=== PATIENT | female | born 1940 | race Caucasian/White ===

== ENCOUNTER → 2018-01-16 | Outpatient (CLI) | payer MEDICARE ==
[~2018-01-16] MED LIST: AMLO10TA2 PO; ASPI-1197 PO; B12/1TAB2 PO; BENZ-51 PO; CALC-1198 PO; CHOL200012 PO; CHRO1000 PO; DOXY100T2 PO; ESTR1TAB12 PO; FOLI0.8T PO; IPRA3AMP24 IH; LEVO75TA10 PO; MAGN400T40 PO; METF500T6 PO; MVIT PO; OMEG-125 PO; OMEP10CA41 PO; POTA99TA21 PO; PRAV20TA4 PO; SOLI10TA PO; VIT1CAPS46 PO
== END | disposition home or self-care (01) ==
LOC: RAH 10:29
PROVIDERS: ATTEND Physician Assistant Medical
DX: Z12.31 Encounter for screening mammogram for malignant neoplasm of breast (principal)
CPT/HCPCS: 77067

== ENCOUNTER → 2019-01-17 | Outpatient (CLI) | payer MEDICARE ==
[~2019-01-17] MED LIST changes: -AMLO10TA2 PO; +AMLO10TA7 PO; -DOXY100T2 PO; +LEVO500T2 PO; +METF-444 PO; -METF500T6 PO; +PRAM0.258 PO
== END | disposition home or self-care (01) ==
LOC: RAH 09:21
PROVIDERS: ATTEND Physician Assistant Medical
DX: Z12.31 Encounter for screening mammogram for malignant neoplasm of breast (principal)
CPT/HCPCS: 77067

== ENCOUNTER 2019-12-16 11:29 | Inpatient (IN) | payer MEDICARE, OTHER ==
[~2019-12-16] VITALS: Ht 162.6 cm; Wt 67.2 kg
[~2019-12-16 11:29] MED LIST changes: -OMEP10CA41 PO; +OMEP10CA5 PO
[2019-12-16 12:22] LABS: EOSINOPHILS % (AUTO) 2.4 % (0.0-8.0); HEMATOCRIT 24.1 % (36-48); LYMPHOCYTES % (AUTO) 18.3 % (21.0-51.0); MEAN CORPUSCULAR HEMOGLOBIN 15.8 pg (27.0-33.0); MEAN CORPUSCULAR HGB CONC 26.6 g/dL (32.0-36.0); MEAN CORPUSCULAR VOLUME 59.7 fL (79-99); MONOCYTES % (AUTO) 7.6 % (3.0-13.0); NEUTROPHILS % (AUTO) 70.4 % (40.0-77.0); PLATELET COUNT (AUTO) 290 K/uL (130-400); RED BLOOD CELL COUNT(AUTO) 4.04 MIL/uL (4.00-5.50); RED CELL DISTRIBUTION WIDTH 20.8 % (11.0-15.5); WHITE BLOOD COUNT (AUTO) 8.6 K/uL (4.8-10.8)
[2019-12-16 12:28] LABS: CREATININE 0.8 mg/dL (0.5-1.5); POTASSIUM 4.1 mmol/L (3.5-5.1)
[2019-12-16 12:36] LABS: ALBUMIN 3.6 g/dL (3.5-5.0); BILIRUBIN,DIRECT 0.1 mg/dL (0.0-0.3); BILIRUBIN,TOTAL 0.4 mg/dL (0.2-1.0)
[2019-12-16 12:37] LABS: INR 0.95 (0.85-1.15); PARTIAL THROMBOPLASTIN TIME 27.1 SEC (26.3-35.5); PROTHROMBIN TIME 10.3 SEC (9.6-11.6)
[2019-12-16] MEDS: SODIUM CHLORIDE 0.9% 1000ML 1,000 ML IV SCH (15:51)
[2019-12-16] MEDS ORDERED: HYDRALAZINE HCL 20 MG/ML VIAL IV PRN (16:00)
[2019-12-16] MEDS ORDERED: ACETAMINOPHEN 325 MG TAB PO PRN (16:00)
[2019-12-16 17:46] VITALS: BP 156/98
[2019-12-16] MEDS ORDERED: ASPI-555 PO (18:17)
[2019-12-16] MEDS ORDERED: [UNRECOGNIZED DRUG - OTHER] (18:17)
[2019-12-16] MEDS ORDERED: ESTR0.452 PO (18:17)
[2019-12-16] MEDS ORDERED: METF500S7 PO (18:17)
[2019-12-16] MEDS ORDERED: ALBU90AE2 IH (18:17)
[2019-12-16] MEDS ORDERED: MIRA25TA PO (18:17)
[2019-12-16] MEDS ORDERED: PYRI100T10 PO (18:17)
[2019-12-16] MEDS ORDERED: LEVO75TA10 PO (18:17)
[2019-12-16] MEDS ORDERED: OMEP40CA13 PO (18:17)
[2019-12-16] MEDS ORDERED: PRAM1TAB7 PO (18:17)
[2019-12-16] MEDS ORDERED: ALEN70TA10 PO (18:17)
[2019-12-16] MEDS ORDERED: PRAV20TA4 PO (18:17)
[2019-12-16] MEDS ORDERED: AMLO10TA7 PO (18:17)
[2019-12-16 19:00] VITALS: BP 138/63
[2019-12-16 19:28] LABS: RETICULOCYTE % (AUTO) 2.24 % (0.42-2.23)
[2019-12-16 20:38] LABS: % IRON SATURATION 2.9 % (22-44)
[2019-12-16 20:55] LABS: ALBUMIN 3.4 g/dL (3.5-5.0); BILIRUBIN,TOTAL 1.3 mg/dL (0.2-1.0); CREATININE 0.9 mg/dL (0.5-1.5); POTASSIUM 4.1 mmol/L (3.5-5.1); TOTAL PROTEIN, SERUM 6.8 g/dL (6.0-8.3)
[2019-12-16] MEDS: ACETAMINOPHEN 325 MG TAB PO PRN (22:04)
[2019-12-16 22:20] LABS: HEMATOCRIT 27.5 % (36-48); MEAN CORPUSCULAR HEMOGLOBIN 17.3 pg (27.0-33.0); MEAN CORPUSCULAR HGB CONC 27.3 g/dL (32.0-36.0); MEAN CORPUSCULAR VOLUME 63.5 fL (79-99); PLATELET COUNT (AUTO) 287 K/uL (130-400); RED BLOOD CELL COUNT(AUTO) 4.33 MIL/uL (4.00-5.50); WHITE BLOOD COUNT (AUTO) 9.4 K/uL (4.8-10.8)
[2019-12-16 23:00] VITALS: BP 142/66
[2019-12-17] MEDS: SODIUM CHLORIDE 0.9% 1000ML 1,000 ML IV SCH ×3 (01:51→20:30)
[2019-12-17 03:00] VITALS: BP 135/61
[2019-12-17 04:46] LABS: APPEARANCE,URINE Clear (CLEAR); BILIRUBIN,URINE Negative (NEGATIVE); COLOR,URINE Yellow (YELLOW); GLUCOSE, URINE (UA) Negative (NEGATIVE); KETONES,URINE Negative (NEGATIVE); LEUKOCYTE ESTERASE ,URINE Trace (NEGATIVE); NITRATE,URINE Negative (NEGATIVE); OCCULT BLOOD,URINE Negative (NEGATIVE); PH,URINE 6.5 (5.0-8.0); PROTEIN,URINE Negative (NEGATIVE)
[2019-12-17 05:01] LABS: BACTERIA,URINE Rare /HPF (None Seen); RBC,URINE 0-1 /HPF (0-1); SQUAMOUS EPITHELIAL CELL,UR Few /HPF (0-2)
[2019-12-17 05:27] LABS: BASOPHILS % (AUTO) 1.1 % (0.0-5.0); EOSINOPHILS % (AUTO) 8.5 % (0.0-8.0); HEMATOCRIT 28.9 % (36-48); LYMPHOCYTES % (AUTO) 20.1 % (21.0-51.0); MEAN CORPUSCULAR HEMOGLOBIN 17.2 pg (27.0-33.0); MEAN CORPUSCULAR HGB CONC 27.3 g/dL (32.0-36.0); MEAN CORPUSCULAR VOLUME 62.8 fL (79-99); MONOCYTES % (AUTO) 8.5 % (3.0-13.0); NEUTROPHILS % (AUTO) 61.2 % (40.0-77.0); PLATELET COUNT (AUTO) 267 K/uL (130-400); RED CELL DISTRIBUTION WIDTH 22.6 % (11.0-15.5); WHITE BLOOD COUNT (AUTO) 7.9 K/uL (4.8-10.8)
--- NOTE | 2019-12-17 06:39 | NUR ---
PAGED PATIENT HOME MEDICATION LIST HAS BEEN RECONCILED AND PENDING MD REVIEW. PATIENT WANTING TO KNOW IF SHE CAN TAKE HER PRESCRIBED MEDICATIONS, IS "WORRIED" ABOUT MISSING HER THYROID MEDICATION. WAITING FOR CALL BACK.
[2019-12-17 08:49] VITALS: BP 138/72
[2019-12-17] MEDS ORDERED: FAMOTIDINE/PF 20 MG/2 ML VIAL IV SCH (09:00)
[2019-12-17 10:59] VITALS: BP 142/57
--- NOTE | 2019-12-17 12:47 | NUR ---
DCP CM met with pt discussed dc plans. Pt is independent prior to admission, lives at home with spouse. Pt has a nebulizer, walker, O2. Denies any other equipments/services. Feels safe to go back home, still drives, spouse able to assist with transportation and needs as necessary. DC plan to home once stable. CM to cont to follow up. Addendum: 12/17/19 at 1249 by ALDO PINTO LVN CM Amended: Links added.
[2019-12-17 15:42] VITALS: BP 141/65
[2019-12-17] MEDS ORDERED: ALBUTEROL SULFATE 0.083% 2.5 MG/3 ML INH IH SCH (18:00)
[2019-12-17] MEDS ORDERED: ALBUTEROL SULFATE 0.083% 2.5 MG/3 ML INH IH ONE (18:13)
[2019-12-17 19:45] VITALS: BP 147/56
[2019-12-17] MEDS: GUAIFENESIN/DEXTROMETHORPHAN 1 EACH TAB.SR.12H PO SCH (20:14)
[2019-12-17] MEDS: ATORVASTATIN CALCIUM 10 MG TABLET PO SCH (20:15)
[2019-12-17] MEDS: ACETAMINOPHEN 325 MG TAB PO PRN (21:46)
[2019-12-17 23:21] VITALS: BP 154/62
[2019-12-18] VITALS (18 sets, daily range): BP systolic 111–172; BP diastolic 48–91
--- NOTE | 2019-12-18 | NUR ---
Patient kept NPO post midniht for EGD in am
[2019-12-18] MEDS: LEVOTHYROXINE 75 MCG TABLET PO SCH (06:30)
[2019-12-18] MEDS: IPRATROPIUM/ALBUTEROL SULFATE 3 ML SOLUTION IH SCH ×2 (06:58→18:21)
--- NOTE | 2019-12-18 07:44 | NUR ---
Patient remained NPO, for EGD today already scheduled per am shift nurse yesterday.Bedside report given.
[2019-12-18] MEDS: METFORMIN HCL 500 MG TAB.SR.24H PO SCH (08:00)
[2019-12-18] MEDS: **HM**(Mirabegron (Myrbetriq) 25 MG PO SCH (09:00)
[2019-12-18] MEDS ORDERED: MORPHINE SULFATE 2 MG/ML 1ML SYG IM PRN (11:15)
[2019-12-18] MEDS ORDERED: LIDOCAINE HCL 1% 20 ML VIAL ONE (12:29)
[2019-12-18] MEDS ORDERED: PROPOFOL 10 MG/ML 20ML VIAL IV ONE (12:29)
[2019-12-18] MEDS: GUAIFENESIN/DEXTROMETHORPHAN 1 EACH TAB.SR.12H PO SCH ×2 (15:17→20:32)
[2019-12-18] MEDS: AMLODIPINE BESYLATE 5 MG TAB PO SCH (15:18)
[2019-12-18] MEDS: ESTROGENS,CONJUGATED 0.625 MG TAB PO SCH (15:21)
[2019-12-18] MEDS: PYRIDOXINE HCL 50 MG TABLET PO SCH (15:21)
[2019-12-18] MEDS: PRAMIPEXOLE DI-HCL 0.25 MG TABLET PO SCH (15:22)
[2019-12-18] MEDS: ACETAMINOPHEN 325 MG TAB PO PRN ×2 (15:44→20:32)
[2019-12-18] MEDS: ATORVASTATIN CALCIUM 10 MG TABLET PO SCH (20:32)
[2019-12-18] MEDS: ONDANSETRON HCL 4 MG/2 ML VIAL IV PRN (20:32)
[2019-12-18] MEDS: SODIUM CHLORIDE 0.9% 1000ML 1,000 ML IV SCH (20:33)
[2019-12-19] VITALS (7 sets, daily range): BP systolic 115–143; BP diastolic 53–75
[2019-12-19] MEDS: ACETAMINOPHEN 325 MG TAB PO PRN ×2 (02:58→08:35)
[2019-12-19 05:15] LABS: BASOPHILS % (AUTO) 0.8 % (0.0-5.0); HEMATOCRIT 29.9 % (36-48); LYMPHOCYTES % (AUTO) 12.5 % (21.0-51.0); MEAN CORPUSCULAR HEMOGLOBIN 17.6 pg (27.0-33.0); MEAN CORPUSCULAR HGB CONC 27.4 g/dL (32.0-36.0); MEAN CORPUSCULAR VOLUME 64.3 fL (79-99); MONOCYTES % (AUTO) 6.7 % (3.0-13.0); NEUTROPHILS % (AUTO) 78.5 % (40.0-77.0); PLATELET COUNT (AUTO) 272 K/uL (130-400); RED BLOOD CELL COUNT(AUTO) 4.65 MIL/uL (4.00-5.50); RED CELL DISTRIBUTION WIDTH 24.2 % (11.0-15.5)
[2019-12-19 06:05] LABS: ALBUMIN 3.3 g/dL (3.5-5.0); BILIRUBIN,TOTAL 0.4 mg/dL (0.2-1.0); CREATININE 0.7 mg/dL (0.5-1.5); POTASSIUM 5.1 mmol/L (3.5-5.1); TOTAL PROTEIN, SERUM 6.6 g/dL (6.0-8.3)
[2019-12-19] MEDS: LEVOTHYROXINE 75 MCG TABLET PO SCH (06:09)
[2019-12-19] MEDS: IPRATROPIUM/ALBUTEROL SULFATE 3 ML SOLUTION IH SCH ×4 (06:50→21:53)
[2019-12-19] MEDS: PANTOPRAZOLE SODIUM 40 MG TABLET.DR PO SCH ×2 (08:33→08:36)
[2019-12-19] MEDS: METFORMIN HCL 500 MG TAB.SR.24H PO SCH (08:33)
[2019-12-19] MEDS: ESTROGENS,CONJUGATED 0.625 MG TAB PO SCH (08:33)
[2019-12-19] MEDS: GUAIFENESIN/DEXTROMETHORPHAN 1 EACH TAB.SR.12H PO SCH ×2 (08:33→19:55)
[2019-12-19] MEDS: AMLODIPINE BESYLATE 5 MG TAB PO SCH (08:34)
[2019-12-19] MEDS: PRAMIPEXOLE DI-HCL 0.25 MG TABLET PO SCH (08:34)
[2019-12-19] MEDS: PYRIDOXINE HCL 50 MG TABLET PO SCH (08:34)
[2019-12-19] MEDS: **HM**(Mirabegron (Myrbetriq) 25 MG PO SCH (08:36)
[2019-12-19] MEDS: SODIUM CHLORIDE 0.9% 1000ML 1,000 ML IV SCH (08:36)
[2019-12-19] MEDS ORDERED: BENZONATATE 100 MG CAPSULE PO PRN (13:30)
[2019-12-19] MEDS: METHYLPREDNISOLONE SOD SUCC 40MG/ML 1ML IVP SCH ×3 (14:43→23:56)
[2019-12-19] MEDS: BUTALB/ACETAMINOPHEN/CAFFEINE 1 EACH TABLET PO PRN ×2 (19:09→23:33)
[2019-12-19] MEDS: ATORVASTATIN CALCIUM 10 MG TABLET PO SCH (19:55)
[2019-12-20] MEDS: IPRATROPIUM/ALBUTEROL SULFATE 3 ML SOLUTION IH SCH ×6 (01:18→22:02)
[2019-12-20 04:36] VITALS: BP 118/57
[2019-12-20 05:18] LABS: BASOPHILS % (AUTO) 0.1 % (0.0-5.0); HEMATOCRIT 29.1 % (36-48); LYMPHOCYTES % (AUTO) 4.1 % (21.0-51.0); MEAN CORPUSCULAR HEMOGLOBIN 17.2 pg (27.0-33.0); MEAN CORPUSCULAR HGB CONC 27.1 g/dL (32.0-36.0); MEAN CORPUSCULAR VOLUME 63.5 fL (79-99); MONOCYTES % (AUTO) 0.6 % (3.0-13.0); NEUTROPHILS % (AUTO) 94.6 % (40.0-77.0); PLATELET COUNT (AUTO) 278 K/uL (130-400); RED BLOOD CELL COUNT(AUTO) 4.58 MIL/uL (4.00-5.50); RED CELL DISTRIBUTION WIDTH 24.9 % (11.0-15.5); WHITE BLOOD COUNT (AUTO) 8.3 K/uL (4.8-10.8)
[2019-12-20] MEDS: BUTALB/ACETAMINOPHEN/CAFFEINE 1 EACH TABLET PO PRN (05:20)
[2019-12-20 05:43] LABS: ALBUMIN 3.3 g/dL (3.5-5.0); BILIRUBIN,TOTAL 0.3 mg/dL (0.2-1.0); CREATININE 0.8 mg/dL (0.5-1.5); POTASSIUM 4.1 mmol/L (3.5-5.1); TOTAL PROTEIN, SERUM 6.8 g/dL (6.0-8.3)
[2019-12-20] MEDS: METHYLPREDNISOLONE SOD SUCC 40MG/ML 1ML IVP SCH ×3 (05:43→21:13)
[2019-12-20] MEDS: LEVOTHYROXINE 75 MCG TABLET PO SCH (06:01)
[2019-12-20 08:00] VITALS: BP 116/61
[2019-12-20] MEDS: PANTOPRAZOLE SODIUM 40 MG TABLET.DR PO SCH ×2 (09:00→09:17)
[2019-12-20] MEDS: **HM**(Mirabegron (Myrbetriq) 25 MG PO SCH (09:00)
[2019-12-20] MEDS: SODIUM CHLORIDE 0.9% 1000ML 1,000 ML IV SCH (09:16)
[2019-12-20] MEDS: PRAMIPEXOLE DI-HCL 0.25 MG TABLET PO SCH (09:17)
[2019-12-20] MEDS: GUAIFENESIN/DEXTROMETHORPHAN 1 EACH TAB.SR.12H PO SCH ×2 (09:17→21:14)
[2019-12-20] MEDS: PYRIDOXINE HCL 50 MG TABLET PO SCH (09:17)
[2019-12-20] MEDS: METFORMIN HCL 500 MG TAB.SR.24H PO SCH (09:17)
[2019-12-20] MEDS: AMLODIPINE BESYLATE 5 MG TAB PO SCH (09:18)
[2019-12-20] MEDS: ACETAMINOPHEN 325 MG TAB PO PRN ×2 (09:24→21:16)
[2019-12-20 12:00] VITALS: BP 131/81
[2019-12-20] MEDS: ESTROGENS,CONJUGATED 0.625 MG TAB PO SCH (14:34)
[2019-12-20] MEDS: DOCUSATE SODIUM 100 MG CAP PO SCH (14:35)
[2019-12-20] MEDS: FERROUS SULFATE 325 MG TABLET.DR PO SCH ×2 (14:35→21:14)
[2019-12-20 15:59] VITALS: BP 114/53
[2019-12-20 19:44] VITALS: BP 117/54
[2019-12-20] MEDS: DOXYCYCLINE 100MG+NS 250ML 250 ML IV SCH (21:14)
[2019-12-20] MEDS: ATORVASTATIN CALCIUM 10 MG TABLET PO SCH (21:14)
[2019-12-20 23:20] VITALS: BP 114/82
[2019-12-21] MEDS: IPRATROPIUM/ALBUTEROL SULFATE 3 ML SOLUTION IH SCH ×3 (01:00→10:01)
[2019-12-21 04:04] VITALS: BP 129/58
[2019-12-21 05:16] LABS: BASOPHILS % (AUTO) 0.1 % (0.0-5.0); HEMATOCRIT 27.5 % (36-48); LYMPHOCYTES % (AUTO) 4.1 % (21.0-51.0); MEAN CORPUSCULAR HEMOGLOBIN 17.9 pg (27.0-33.0); MEAN CORPUSCULAR HGB CONC 27.6 g/dL (32.0-36.0); MEAN CORPUSCULAR VOLUME 64.7 fL (79-99); MONOCYTES % (AUTO) 2.6 % (3.0-13.0); NUCLEATED RED BLOOD CELLS 0.2 % (0.0-0.19); PLATELET COUNT (AUTO) 302 K/uL (130-400); RED BLOOD CELL COUNT(AUTO) 4.25 MIL/uL (4.00-5.50); RED CELL DISTRIBUTION WIDTH 25.8 % (11.0-15.5); WHITE BLOOD COUNT (AUTO) 11.8 K/uL (4.8-10.8)
[2019-12-21 05:46] LABS: ALBUMIN 3.3 g/dL (3.5-5.0); BILIRUBIN,TOTAL 0.2 mg/dL (0.2-1.0); CREATININE 0.9 mg/dL (0.5-1.5); POTASSIUM 4.4 mmol/L (3.5-5.1); TOTAL PROTEIN, SERUM 6.7 g/dL (6.0-8.3)
[2019-12-21] MEDS ORDERED: IPRATROPIUM/ALBUTEROL SULFATE 3 ML SOLUTION IH ONE (06:11)
[2019-12-21] MEDS: DOXYCYCLINE 100MG+NS 250ML 250 ML IV SCH (06:32)
[2019-12-21] MEDS: LEVOTHYROXINE 75 MCG TABLET PO SCH (06:32)
[2019-12-21 08:00] VITALS: BP 147/75
[2019-12-21] MEDS: ESTROGENS,CONJUGATED 0.625 MG TAB PO SCH (08:31)
[2019-12-21] MEDS: GUAIFENESIN/DEXTROMETHORPHAN 1 EACH TAB.SR.12H PO SCH ×2 (08:31→20:07)
[2019-12-21] MEDS: METFORMIN HCL 500 MG TAB.SR.24H PO SCH (08:31)
[2019-12-21] MEDS: FERROUS SULFATE 325 MG TABLET.DR PO SCH ×3 (08:31→20:07)
[2019-12-21] MEDS: PANTOPRAZOLE SODIUM 40 MG TABLET.DR PO SCH ×2 (08:31→08:32)
[2019-12-21] MEDS: **HM**(Mirabegron (Myrbetriq) 25 MG PO SCH (08:32)
[2019-12-21] MEDS: DOCUSATE SODIUM 100 MG CAP PO SCH (08:32)
[2019-12-21] MEDS: PRAMIPEXOLE DI-HCL 0.25 MG TABLET PO SCH (08:32)
[2019-12-21] MEDS: AMLODIPINE BESYLATE 5 MG TAB PO SCH (08:32)
[2019-12-21] MEDS: PYRIDOXINE HCL 50 MG TABLET PO SCH (08:32)
[2019-12-21] MEDS: METHYLPREDNISOLONE SOD SUCC 40MG/ML 1ML IVP SCH (08:33)
[2019-12-21] MEDS: BUTALB/ACETAMINOPHEN/CAFFEINE 1 EACH TABLET PO PRN ×2 (09:35→14:24)
[2019-12-21 11:36] VITALS: BP 131/66
[2019-12-21] MEDS ORDERED: POLYETHYLENE GLYCOL 3350 17 GM POWD.PACK PO SCH (13:00)
--- NOTE | 2019-12-21 13:08 | NUR ---
RECONSULT/DR MOTA ATTEMPTED TO CALL [phone] UP X 2. LEFT VOICEMAIL
--- NOTE | 2019-12-21 13:44 | NUR ---
DR UP/ CONSULT RECEIVED CALL FROM CATHY. STATED HE WILL REVIEW CHART AND CALL BACK WITH ORDERS
[2019-12-21] MEDS: POLYETHYLENE GLYCOL 3350 17 GM POWD.PACK PO SCH (13:57)
--- NOTE | 2019-12-21 14:58 | NUR ---
CASE DISCUSSED THIS AM WITH . LOW HGB IS A CONCERN. PT'S COPD PUTS HER AT RISK FOR HEALTH CARE ACQUIRED INFECTION. PT ON DROPLET PRECAUTIONS, ON OXYGEN. PT DOES NOT WANT HER DOOR CLOSED. STATES CLAUSTROPHOBIC. GENTLY ENCOURAGED TO CLOSE DOOR. VERBALIZED UNDERSTANDING Addendum: 12/21/19 at 1502 by ODETTE STALLINGS RN CM Amended: Links added.
[2019-12-21] MEDS ORDERED: IPRATROPIUM/ALBUTEROL SULFATE 3 ML SOLUTION IH PRN (15:45)
[2019-12-21 16:00] VITALS: BP 146/70
[2019-12-21] MEDS ORDERED: PREDNISONE 20 MG TABLET PO SCH (17:30)
[2019-12-21 19:59] VITALS: BP 134/66
[2019-12-21] MEDS: ATORVASTATIN CALCIUM 10 MG TABLET PO SCH (20:07)
[2019-12-21] MEDS: ACETAMINOPHEN 325 MG TAB PO PRN (20:09)
[2019-12-21 23:20] VITALS: BP 143/70
[2019-12-22 03:32] VITALS: BP 149/73
[2019-12-22 05:36] LABS: HEMATOCRIT 30.2 % (36-48); MEAN CORPUSCULAR HEMOGLOBIN 17.5 pg (27.0-33.0); MEAN CORPUSCULAR HGB CONC 27.2 g/dL (32.0-36.0); MEAN CORPUSCULAR VOLUME 64.4 fL (79-99); NUCLEATED RED BLOOD CELLS 0.2 % (0.0-0.19); PLATELET COUNT (AUTO) 306 K/uL (130-400); RED BLOOD CELL COUNT(AUTO) 4.69 MIL/uL (4.00-5.50); RED CELL DISTRIBUTION WIDTH 26.4 % (11.0-15.5); WHITE BLOOD COUNT (AUTO) 14.3 K/uL (4.8-10.8)
[2019-12-22] MEDS: LEVOTHYROXINE 75 MCG TABLET PO SCH (06:17)
[2019-12-22 06:23] LABS: ALBUMIN 3.4 g/dL (3.5-5.0); BILIRUBIN,TOTAL 0.3 mg/dL (0.2-1.0); CREATININE 0.8 mg/dL (0.5-1.5); POTASSIUM 4.1 mmol/L (3.5-5.1); TOTAL PROTEIN, SERUM 6.7 g/dL (6.0-8.3)
[2019-12-22 07:30] VITALS: BP 145/89
[2019-12-22] MEDS: GUAIFENESIN/DEXTROMETHORPHAN 1 EACH TAB.SR.12H PO SCH ×2 (08:29→20:15)
[2019-12-22] MEDS: POLYETHYLENE GLYCOL 3350 17 GM POWD.PACK PO SCH (08:29)
[2019-12-22] MEDS: FERROUS SULFATE 325 MG TABLET.DR PO SCH ×3 (08:30→20:15)
[2019-12-22] MEDS: PRAMIPEXOLE DI-HCL 0.25 MG TABLET PO SCH (08:30)
[2019-12-22] MEDS: PANTOPRAZOLE SODIUM 40 MG TABLET.DR PO SCH ×2 (08:30→09:00)
[2019-12-22] MEDS: PYRIDOXINE HCL 50 MG TABLET PO SCH (08:32)
[2019-12-22] MEDS: METFORMIN HCL 500 MG TAB.SR.24H PO SCH (08:32)
[2019-12-22] MEDS: DOCUSATE SODIUM 100 MG CAP PO SCH (08:46)
[2019-12-22] MEDS: AMLODIPINE BESYLATE 5 MG TAB PO SCH (08:46)
[2019-12-22] MEDS: **HM**(Mirabegron (Myrbetriq) 25 MG PO SCH (09:00)
[2019-12-22] MEDS: ESTROGENS,CONJUGATED 0.625 MG TAB PO SCH (09:00)
[2019-12-22] MEDS ORDERED: COMPOUND IV MISC 1 EACH IVSOLN MISC PRN (10:45)
[2019-12-22 11:00] VITALS: BP 140/67
--- NOTE | 2019-12-22 13:42 | NUR ---
RD NOTIFICATION RD consults due to LOS X 6. Diet: regular. PO intake 100% and has great appetite. Labs and meds reviewed. Skin is intact. S/P EGD on 12/17, no signs of GI Bleed. RD recommends to continue current diet Offer Glucerna as needed Monitor signs/ symptoms of possible blood loss Monitor po intake and tolerance Monitor BM and labs RD will continue to monitor and follow up as needed, thank you. Addendum: 12/22/19 at [address] Amended: Links added.
[2019-12-22] MEDS: ACETAMINOPHEN 325 MG TAB PO PRN ×2 (15:39→20:16)
[2019-12-22 16:00] VITALS: BP 142/73
[2019-12-22 20:13] VITALS: BP 134/70
[2019-12-22] MEDS: DOXYCYCLINE HYCLATE 100 MG TABLET PO SCH (20:15)
[2019-12-22] MEDS: ATORVASTATIN CALCIUM 10 MG TABLET PO SCH (22:07)
[2019-12-22] MEDS: ONDANSETRON HCL 4 MG/2 ML VIAL IV PRN (22:07)
[2019-12-22 23:37] VITALS: BP 142/65
[2019-12-23 04:06] VITALS: BP 136/71
[2019-12-23 05:06] LABS: BASOPHILS % (AUTO) 0.8 % (0.0-5.0); EOSINOPHILS % (AUTO) 0.4 % (0.0-8.0); HEMATOCRIT 28.8 % (36-48); LYMPHOCYTES % (AUTO) 28.3 % (21.0-51.0); MEAN CORPUSCULAR HEMOGLOBIN 17.7 pg (27.0-33.0); MEAN CORPUSCULAR HGB CONC 27.4 g/dL (32.0-36.0); MEAN CORPUSCULAR VOLUME 64.4 fL (79-99); MONOCYTES % (AUTO) 8.4 % (3.0-13.0); NEUTROPHILS % (AUTO) 60.6 % (40.0-77.0); NUCLEATED RED BLOOD CELLS 0.2 % (0.0-0.19); PLATELET COUNT (AUTO) 292 K/uL (130-400); RED BLOOD CELL COUNT(AUTO) 4.47 MIL/uL (4.00-5.50); RED CELL DISTRIBUTION WIDTH 26.6 % (11.0-15.5); WHITE BLOOD COUNT (AUTO) 10.6 K/uL (4.8-10.8)
[2019-12-23] MEDS: LEVOTHYROXINE 75 MCG TABLET PO SCH (06:23)
[2019-12-23 07:30] VITALS: BP 130/61
[2019-12-23] MEDS: PYRIDOXINE HCL 50 MG TABLET PO SCH (08:49)
[2019-12-23] MEDS: ESTROGENS,CONJUGATED 0.625 MG TAB PO SCH (08:49)
[2019-12-23] MEDS: PANTOPRAZOLE SODIUM 40 MG TABLET.DR PO SCH ×2 (08:49→08:53)
[2019-12-23] MEDS: FERROUS SULFATE 325 MG TABLET.DR PO SCH (08:49)
[2019-12-23] MEDS: DOXYCYCLINE HYCLATE 100 MG TABLET PO SCH (08:49)
[2019-12-23] MEDS: GUAIFENESIN/DEXTROMETHORPHAN 1 EACH TAB.SR.12H PO SCH (08:50)
[2019-12-23] MEDS: METFORMIN HCL 500 MG TAB.SR.24H PO SCH (08:50)
[2019-12-23] MEDS: PRAMIPEXOLE DI-HCL 0.25 MG TABLET PO SCH (08:51)
[2019-12-23] MEDS: POLYETHYLENE GLYCOL 3350 17 GM POWD.PACK PO SCH (08:51)
[2019-12-23] MEDS: AMLODIPINE BESYLATE 5 MG TAB PO SCH (08:52)
[2019-12-23] MEDS: **HM**(Mirabegron (Myrbetriq) 25 MG PO SCH (08:53)
[2019-12-23] MEDS ORDERED: IRON SUCROSE COMPLEX 100 MG in SODIUM CHLORIDE 0.9% 50 ML IV SCH ×2 (09:30→14:00)
[2019-12-23] MEDS ORDERED: DOXY100T2 PO (10:56)
[2019-12-23] MEDS ORDERED: FERR324T4 PO (10:56)
[2019-12-23] MEDS ORDERED: PRED20B PO (10:56)
[2019-12-23] MEDS ORDERED: PANT40TA PO (10:56)
[2019-12-23] MEDS ORDERED: GUAI-904 PO (10:56)
[2019-12-23 11:00] VITALS: BP 133/65
[2019-12-23] MEDS: DOCUSATE SODIUM 100 MG CAP PO SCH (11:45)
--- NOTE | 2019-12-23 12:27 | NUR ---
DISCHARGE DISCHARGE INSTRUCTIONS GIVEN TO PATIENT, VERBALIZED UNDERSTANDING. IV DISCONTINUED. APPOINTMENTS FOR FOLLOW UPS MADE. PRESCRIPTIONS SENT TO [facility].
[2019-12-23] MEDS ORDERED: PREDNISONE 20 MG TABLET PO SCH (17:00)
[2019-12-24] MEDS ORDERED: ALENDRONATE SODIUM 35 MG TAB PO SCH (09:00)
== END 2019-12-23 12:25 | disposition home or self-care (01) | DRG 378 ==
LOC: EDH 11:29 → EDHIP 15:51 → 3DH 17:30
PROVIDERS: ADMIT Internal Medicine; ATTEND Internal Medicine
PROC: 30233N1 Transfusion of Nonautologous Red Blood Cells into Peripheral Vein, Percutaneous Approach (ICD-10-PCS; principal; 2019-12-16)
PROC: 0DB98ZX Excision of Duodenum, Via Natural or Artificial Opening Endoscopic, Diagnostic (ICD-10-PCS; 2019-12-18)
PROC: 0DB68ZX Excision of Stomach, Via Natural or Artificial Opening Endoscopic, Diagnostic (ICD-10-PCS; 2019-12-18)
DX: K29.71 Gastritis, unspecified, with bleeding (principal); J44.1 Chronic obstructive pulmonary disease with (acute) exacerbation; D62 Acute posthemorrhagic anemia; J96.11 Chronic respiratory failure with hypoxia; Q39.6 Congenital diverticulum of esophagus; I10 Essential (primary) hypertension; E11.9 Type 2 diabetes mellitus without complications; D50.9 Iron deficiency anemia, unspecified; Z87.891 Personal history of nicotine dependence; Z85.850 Personal history of malignant neoplasm of thyroid; Z88.0 Allergy status to penicillin; Z88.8 Allergy status to other drugs, medicaments and biological substances; Z82.3 Family history of stroke; Z82.49 Family history of ischemic heart disease and other diseases of the circulatory system; Z83.6 Family history of other diseases of the respiratory system; Z80.9 Family history of malignant neoplasm, unspecified
CPT/HCPCS: 36415; 36430; 43239; 71045; 71250; 80048; 80053; 80076; 81001; 82270; 82948; 83540; 83550; 84145; 85025; 85027; 85045; 85610; 85730; 86850; 86900; 86901; 86922; 93005; 94640; 94664; 99291; A4606; G0378; J1756; J2405; J2704; J2920; J3490; J7030; P9016

== ENCOUNTER → 2020-01-20 | Outpatient (CLI) | payer OTHER ==
[~2020-01-20] MED LIST changes: +ALBU90AE2 IH; +ALEN70TA10 PO; -ASPI-1197 PO; +ASPI-555 PO; -B12/1TAB2 PO; -BENZ-51 PO; -CALC-1198 PO; -CHOL200012 PO; -CHRO1000 PO; +DOXY100T2 PO; +ESTR0.452 PO; -ESTR1TAB12 PO; +FERR324T4 PO; -FOLI0.8T PO; +GUAI-904 PO; -IPRA3AMP24 IH; -LEVO500T2 PO; -MAGN400T40 PO; -METF-444 PO; +METF500S7 PO; +MIRA25TA PO; -MVIT PO; -OMEG-125 PO; -OMEP10CA5 PO; +PANT40TA PO; -POTA99TA21 PO; -PRAM0.258 PO; +PRAM1TAB7 PO; +PRED20B PO; +PYRI100T10 PO; -SOLI10TA PO; -VIT1CAPS46 PO; +[UNRECOGNIZED DRUG - OTHER]
== END | disposition home or self-care (01) ==
LOC: RAH 09:11
PROVIDERS: ATTEND Physician Assistant Medical
DX: Z12.31 Encounter for screening mammogram for malignant neoplasm of breast (principal)
CPT/HCPCS: 77067